=== PATIENT | male | born 1970 | race Two or more races ===

== ENCOUNTER 2023-10-27 10:00 | Outpatient (CLI) | payer OTHER ==
[2023-10-27 21:15] LABS: Body Fluid Polymorphonuclear 5 % (0-25); Body Fluid Red Blood Cells 10 CUMM (0-2000); Body Fluid White Blood Cells 60 CUMM (0-200)
== END 2023-10-27 11:30 | disposition home or self-care (01) ==
LOC: US 10:00 → EEVIPCON 11:00 → US 11:30
DX: M71.22 Synovial cyst of popliteal space [Baker], left knee (principal)
CPT/HCPCS: 76942; 87205; 88104; 88305; 88312; 88342; 89051; C1729; 20611